=== PATIENT | male | born 1985 | race Caucasian/White ===

== ENCOUNTER 2019-06-29 20:09 | Emergency (ER) | payer OTHER ==
[~2019-06-29] VITALS: Ht 193 cm; Wt 140.6 kg
[2019-06-29 20:29] VITALS: BP_SYST 126
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
--- NOTE | 2019-06-29 20:53 | NUR ---
ER Dr. Beach at bedside examining patient.
[2019-06-29] MEDS ORDERED: cefTRIAXone 1 GM in LIDOCAINE 1%, 20 ML MDV 2.1 ML IM ONE (21:15)
[2019-06-29] MEDS ORDERED: HYDROcodone/ACETAMIN 7.5-325 MG TAB PO ONE (21:15)
[2019-06-29] MEDS ORDERED: INSULIN REGULAR, HUMAN 10 UNITS/0.1 ML INJ SUBCUT ONE (21:30)
[2019-06-29] MEDS ORDERED: BACITRACIN 1 GM OINT TP ONE ×2 (21:30→21:31)
--- NOTE | 2019-06-29 21:35 | NUR ---
Administered Rocephin 1gm mixed with 2.1mL of Lidocaine 1% IM and [place] 7/325 1 tablet PO as ordered by Dr. Beach. Patient tolerated he medication well.
--- NOTE | 2019-06-29 21:47 | NUR ---
Administered Insulin Regular 10units subcutaneous in the [facility]. Patient tolerated the medication. See eMAR for details.
--- NOTE | 2019-06-29 22:12 | NUR ---
Patient given written and verbal discharge instructions and verbalizes understanding. ER MD discussed with patient the results and treatment provided. Patient in stable condition. ID arm band removed. Rx of [place],Bactrim, Ibuprofen given. Patient educated on pain management and to follow up with PMD. Pain Scale 3/10 tolerable for patient . Opportunity for questions provided and answered. Medication side effect fact sheet provided.
[2019-06-29 22:14] VITALS: BP_SYST 128
== END 2019-06-29 22:12 | disposition home or self-care (01) ==
LOC: SED 20:09
DX: T21.24XA Burn of second degree of lower back, initial encounter (principal); E11.9 Type 2 diabetes mellitus without complications; X08.8XXA Exposure to other specified smoke, fire and flames, initial encounter; Y93.89 Activity, other specified; Y92.89 Other specified places as the place of occurrence of the external cause; Y99.8 Other external cause status
CPT/HCPCS: 16020; 82962; 96372; 99284; J0696; J2001; J1815

== ENCOUNTER 2019-09-19 21:27 | Emergency (ER) | payer OTHER ==
[~2019-09-19] VITALS: Ht 193 cm; Wt 140.6 kg
[2019-09-19 21:33] VITALS: BP_SYST 149
--- NOTE | 2019-09-19 21:45 | NUR ---
Pt placed to ER waiting room in stable condition. Dr. Beach made aware of high blood sugar.
--- NOTE | 2019-09-19 22:00 | NUR ---
Patient to ER bed 6 to gown for evaluation. Side rails up.
--- NOTE | 2019-09-19 22:00 | NUR ---
Pt brought into ED by family member. Pt awake, alert, oriented x4. Pt states that he took his blood sugar today and it was in excess of 600mg/dl. Pt states fredo the feels thirsty and lightheaded, no other symptoms at this time. Pt states he has type 1 diabetes but is noncompliant with medication, and care. Pt states that he didnt think it was serious enough to see his doctor regularly about condition. Pt states that several times a week his blood sugar is in excess of 300mg/dl. Pt denies chest pain, nausea, vomiting, diarrhea, shortness of breath. Pt denies any other medical complaint at this time. Pt vital signs stable, resting in ED bed comfortably.
--- NOTE | 2019-09-19 22:20 | NUR ---
ER at bedside examining patient.
[2019-09-19 22:29] LABS: BASOPHILS % (AUTO) 0.3 % (0.0-2.0); EOSINOPHILS # (AUTO) 0.2 K/uL (0.0-0.4); EOSINOPHILS % (AUTO) 3.8 % (0.0-4.0); HEMATOCRIT 45.3 % (36-54); HEMOGLOBIN 14.9 g/dL (14.0-18.0); LYMPHOCYTES # (AUTO) 2.3 K/uL (1.0-5.5); LYMPHOCYTES % (AUTO) 37.1 % (20.5-51.5); MEAN CORPUSCULAR HEMOGLOBIN 30 pg (27-31); MEAN CORPUSCULAR HGB CONC 33 % (32-36); MEAN CORPUSCULAR VOLUME 91 fL (79.0-98.0); MONOCYTES # (AUTO) 0.4 K/uL (0.0-1.0); MONOCYTES % (AUTO) 6.2 % (1.7-9.3); NEUTROPHILS # (AUTO) 3.3 K/uL (1.8-7.7); NEUTROPHILS % (AUTO) 52.6 % (40.0-70.0); PLATELET COUNT (AUTO) 223 K/uL (130-430); RED BLOOD CELL COUNT(AUTO) 4.96 MIL/uL (4.2-6.2); RED CELL DISTRIBUTION WIDTH 12.7 % (9.0-15.0); WHITE BLOOD COUNT (AUTO) 6.2 K/uL (4.8-10.8)
[2019-09-19 22:40] LABS: CALCIUM 9.2 mg/dL (8.4-11.0); CREATININE 1.06 mg/dL (0.55-1.30)
[2019-09-19 22:42] LABS: TOTAL BILIRUBIN 0.3 mg/dL (0.0-1.0)
[2019-09-19 22:44] LABS: BILIRUBIN,URINE NEGATIVE (NEGATIVE); CLARITY/URINE CLEAR (CLEAR); COLOR,URINE YELLOW (YELLOW); GLUCOSE,URINE 3+ (NEGATIVE); KETONES,URINE NEGATIVE (NEGATIVE); LEUKOCYTE ESTERASE ,URINE NEGATIVE (NEGATIVE); NITRITE, URINE NEGATIVE (NEGATIVE); PH,URINE 5.5 (5.0-8.0); PROTEIN URINE NEGATIVE (NEGATIVE); UROBILINOGEN,URINE 0.2 (0.2-1.0)
[2019-09-19 22:52] LABS: BLOOD, URINE TRACE (NEGATIVE)
[2019-09-19] MEDS ORDERED: NACL 0.9% 1,000 ML IV ONE (22:53)
[2019-09-19 22:58] LABS: BACTERIA,URINE RARE /HPF (None Seen)
[2019-09-19 22:59] LABS: MUCUS,URINE None Seen /LPF (None Seen); RBC,URINE 0-3 /HPF (0-3); WBC,URINE NONE SEEN /HPF (0-3)
[2019-09-19] MEDS ORDERED: INSULIN REGULAR, HUMAN 10 UNITS/0.1 ML INJ IVP ONE (23:00)
--- NOTE | 2019-09-19 23:30 | NUR ---
Pt resting in ED bed. Pt states he feels less thirsty than before. Vitals stable.
--- NOTE | 2019-09-20 00:32 | NUR ---
Pt Resting in ED bed. Pt states that his dizziness has subsided.
[2019-09-20] MEDS ORDERED: NACL 0.9% 1,000 ML IV ONE (00:41)
--- NOTE | 2019-09-20 01:45 | NUR ---
Pt resting in ED bed. tolerating fluids well, no distress noted at this time.
--- NOTE | 2019-09-20 03:02 | NUR ---
Pt resting in Ed bed with no distress.
--- NOTE | 2019-09-20 04:00 | NUR ---
Pt resting in ED bed, No acute distress.
[2019-09-20] MEDS ORDERED: INSULIN REGULAR, HUMAN 10 UNITS/0.1 ML INJ IVP ONE (04:15)
--- NOTE | 2019-09-20 05:30 | NUR ---
Pt blood sugar checked. Blood sugar 296. Pt states he feels much better and is looking forward to meeting with his primary care provider to discuss his diabetes. Pt denies dizziness, excessive thirst. Pt ambulates with steady gait.
[2019-09-20 06:08] VITALS: BP_SYST 141
--- NOTE | 2019-09-20 06:08 | NUR ---
Patient given written and verbal discharge instructions and verbalizes understanding. ER MD discussed with patient the results and treatment provided. Patient in stable condition. ID arm band removed. IV catheter removed intact and dressing applied, no active bleeding. Rx of Metformin, Lantus given with specific dosage instructions. Patient educated to follow up with PMD. Pain Scale 0/10. Opportunity for questions provided and answered. Medication side effect fact sheet provided.
== END 2019-09-20 06:08 | disposition home or self-care (01) ==
LOC: SED 21:27
DX: E11.65 Type 2 diabetes mellitus with hyperglycemia (principal); E86.0 Dehydration
CPT/HCPCS: 36415; 80053; 81000; 82962; 83605; 85025; 87040; 96361; 96374; 96376; 99283; J1815 ×2; J7030

== ENCOUNTER 2020-07-17 22:41 | Emergency (ER) | payer OTHER, SELFPAY ==
[~2020-07-17] VITALS: Ht 193 cm; Wt 136.1 kg
[2020-07-17 22:45] VITALS: BP_SYST 126
[2020-07-18 01:09] LABS: INFLUENZA A&B ANTIGEN SCREEN NEGATIVE FOR A & B (NEGATIVE)
[2020-07-18] MEDS: NACL 0.9% 1,000 ML IV ONE (01:15)
[2020-07-18 01:37] LABS: BILIRUBIN,URINE NEGATIVE (NEGATIVE); BLOOD, URINE 1+ (NEGATIVE); CLARITY/URINE CLEAR (CLEAR); COLOR,URINE YELLOW (YELLOW); GLUCOSE,URINE 3+ (NEGATIVE); KETONES,URINE 1+ (NEGATIVE); LEUKOCYTE ESTERASE ,URINE TRACE (NEGATIVE); NITRITE, URINE NEGATIVE (NEGATIVE); PH,URINE 5.5 (5.0-8.0); PROTEIN URINE TRACE (NEGATIVE); UROBILINOGEN,URINE 0.2 (0.2-1.0)
[2020-07-18 01:41] LABS: HEMOGLOBIN 14.7 g/dL (14.0-18.0); MONOCYTES # (AUTO) 0.6 K/uL (0.0-1.0)
[2020-07-18 01:43] LABS: BACTERIA,URINE FEW /HPF (None Seen); YEAST,URINE Few /HPF (None Seen)
[2020-07-18 01:45] LABS: BASOPHILS % (AUTO) 0.5 % (0.0-2.0); EOSINOPHILS % (AUTO) 1.1 % (0.0-4.0); HEMATOCRIT 44.7 % (36-54); LYMPHOCYTES # (AUTO) 1.7 K/uL (1.0-5.5); LYMPHOCYTES % (AUTO) 37.6 % (20.5-51.5); MEAN CORPUSCULAR HEMOGLOBIN 30 pg (27-31); MEAN CORPUSCULAR HGB CONC 33 % (32-36); MEAN CORPUSCULAR VOLUME 91 fL (79.0-98.0); MONOCYTES % (AUTO) 13.2 % (1.7-9.3); NEUTROPHILS # (AUTO) 2.2 K/uL (1.8-7.7); NEUTROPHILS % (AUTO) 47.6 % (40.0-70.0); PLATELET COUNT (AUTO) 167 K/uL (130-430); RED BLOOD CELL COUNT(AUTO) 4.94 MIL/uL (4.2-6.2); RED CELL DISTRIBUTION WIDTH 11.8 % (9.0-15.0); WHITE BLOOD COUNT (AUTO) 4.6 K/uL (4.8-10.8)
[2020-07-18 01:58] LABS: CALCIUM 8.6 mg/dL (8.4-11.0); CREATININE 0.84 mg/dL (0.55-1.30)
[2020-07-18 02:04] LABS: ALBUMIN 3.9 g/dL (3.4-4.8); TOTAL BILIRUBIN 0.4 mg/dL (0.0-1.0)
[2020-07-18] MEDS: AZITHROMYCIN 250 MG TABLET PO ONE (02:47)
[2020-07-18 03:00] VITALS: BP_SYST 126
== END 2020-07-18 03:00 | disposition home or self-care (01) ==
LOC: SED 22:41
DX: J18.9 Pneumonia, unspecified organism (principal); R50.9 Fever, unspecified; M79.18 Myalgia, other site; E11.9 Type 2 diabetes mellitus without complications; Z79.4 Long term (current) use of insulin; Z20.828 Contact with and (suspected) exposure to other viral communicable diseases
CPT/HCPCS: 36415; 71045; 80053; 81000; 83605; 85025; 86710; 87040; 87086; 87426; 93005; 99285; J7030; Q0144

== ENCOUNTER 2020-07-22 19:47 | Emergency (ER) | payer OTHER, SELFPAY ==
[~2020-07-22] VITALS: Ht 193 cm; Wt 140.6 kg
[2020-07-22 20:13] VITALS: BP_SYST 153
--- NOTE | 2020-07-22 20:13 | NUR ---
Patient triaged and placed in waiting room. VSS and patient appears in no acute distress at this time. Accompanied by , awaiting available bed, and MD notified of need for MSE.
--- NOTE | 2020-07-22 20:49 | NUR ---
Patient to ER bed 3 to gown for evaluation. Side rails up. Report given to Korin CLAYTON.
--- NOTE | 2020-07-22 21:00 | NUR ---
Pt reports to the ER c/o headache x 1 week. Pt states having chills and bodyaches for 4 days. Recently tested for COVID and influenza, both negative. Denies sick contacts. Pt denies photophobia, head injury, or neck injury.
[2020-07-22] MEDS ORDERED: DIPHENHYDRAMINE INJ 50 MG/ML VIAL IM ONE (21:15)
[2020-07-22] MEDS ORDERED: METOCLOPRAMIDE HCL 10 MG/2 ML VIAL IM ONE (21:15)
[2020-07-22] MEDS ORDERED: KETOROLAC TROMETHAMINE 60 MG/2 ML VIAL IM ONE (21:15)
[2020-07-22 21:57] VITALS: BP_SYST 153
--- NOTE | 2020-07-22 21:57 | NUR ---
Patient given written and verbal discharge instructions and verbalizes understanding. ER MD discussed with patient the results and treatment provided. Patient in stable condition. ID arm band removed. Rx of doxycycline 100mg given. Patient educated on pain management and to follow up with PMD. Opportunity for questions provided and answered. Medication side effect fact sheet provided.
== END 2020-07-22 21:57 | disposition home or self-care (01) ==
LOC: SED 19:47
DX: J18.9 Pneumonia, unspecified organism (principal); R51.9 Headache, unspecified; E11.9 Type 2 diabetes mellitus without complications
CPT/HCPCS: 96372; 99284